=== PATIENT | male | born 1945 | race Caucasian/White ===

== ENCOUNTER 2018-01-07 14:06 | Outpatient (CLI) | payer MEDICARE, OTHER ==
[~2018-01-07] VITALS: Ht 167.6 cm; Wt 89.4 kg
[2018-01-07] MEDS ORDERED: NAPR500T8 PO (14:10)
[2018-01-07] MEDS ORDERED: CLON0.5T13 PO (14:10)
[2018-01-07] MEDS ORDERED: OMEP20TA7 PO (14:10)
[2018-01-07] MEDS ORDERED: OMG1KC PO (14:10)
[2018-01-07] MEDS ORDERED: MULT1TAB69 PO (14:10)
[2018-01-07] MEDS ORDERED: AMIT50TA3 PO (14:10)
[2018-01-07] MEDS ORDERED: RT-ALBUINH IH (14:10)
[2018-01-07] MEDS ORDERED: HYDR25TA4 PO (14:10)
== END 2018-01-07 14:11 | disposition home or self-care (01) ==
LOC: PREOP 14:06
PROVIDERS: ATTEND Surgery
DX: Z01.818 Encounter for other preprocedural examination (principal)

== ENCOUNTER 2018-01-12 06:37 | Day surgery (SDC) | payer OTHER, MEDICARE ==
[~2018-01-12] VITALS: Ht 167.6 cm; Wt 89.4 kg
[~2018-01-12 06:37] MED LIST: AMIT50TA3 PO; CLON0.5T13 PO; HYDR25TA4 PO; MULT1TAB69 PO; NAPR500T8 PO; OMEP20TA7 PO; OMG1KC PO; RT-ALBUINH IH
--- OUTSIDE RECORDS SUMMARY | 2018-01-12 06:41 | XMS REPORT | Continuity of Care Document ---
Author Author [facility] Address Unknown Phone Unavailable Allergies Active Description Code Type Severity Reaction Onset Reported/Identified Relationship to Patient Clinical Status Yes No Known Drug Allergies [id number] Drug Allergy Unknown N/A 01/07/2018 Medications There is no data. Problems Date Dx Coded Attending Type Code Diagnosis Diagnosed By 01/07/2018 AMPARO DOW DO Ot Z01.818 ENCOUNTER FOR OTHER PREPROCEDURAL EXAMIN 01/07/2018 AMPARO DOW DO Ot Z01.818 ENCOUNTER FOR OTHER PREPROCEDURAL EXAMIN 01/07/2018 AMPARO DOW DO Ot Z01.818 ENCOUNTER FOR OTHER PREPROCEDURAL EXAMIN Procedures There is no data. Results There is no data. Encounters ACCT No. Visit Date/Time Discharge Status Pt. Type Provider Facility Loc./Unit Complaint [id number] 05/25/2015 21:50:41 05/25/2015 23:59:59 CLS Outpatient [facility] [id number] 01/05/2018 05:37:00 01/05/2018 23:59:59 CLS Outpatient AMPARO DOW DO [facility] PREOP COLONOSCOPY [id number] 01/12/2018 08:00:00 PEN Preadmit AMPARO DOW DO [facility] ENDO SCREENING
[2018-01-12] MEDS ORDERED: LACTATED RINGERS 1,000 ML IV STA (07:02)
[2018-01-12 07:28] VITALS: BP 172/92
[2018-01-12] MEDS ORDERED: PROPOFOL INJECTION 50 ML IV ONE (07:39)
[2018-01-12 09:00] VITALS: BP 112/57
--- NOTE | 2018-01-12 09:01 | Progress Note-Post Operative ---
Post-Operative Progess Note Surgeon (s)/Mechanist (s) Surgeon AMPARO DOW DO Mechanist: na Pre-Operative Diagnosis screening colon Post-Operative Diagnosis sigmoid polyp Procedure & Operative Findings Date of Procedure 01/12/18 Procedure Performed/Findings colonoscopy with hot bx polypectomy Anesthesia Type per [facility] Estimated Blood Loss Estimated blood loss (mL): none Specimens/Packing Specimens Removed sigmoid polyp AMPARO DOW DO Jan 12, 2018 09:01
--- NOTE | 2018-01-12 09:03 | Discharge Inst-Simple/Standard ---
Discharge Inst-Standard Patient Instructions/Follow Up Plan of Care/Instructions/FU: 2 weeks briana Activity as Tolerated: Yes Discharge Diet: Regular Diet AMPARO DOW DO Jan 12, 2018 09:03
[2018-01-12 09:28] VITALS: BP 137/69
[2018-01-12 09:29] VITALS: BP 137/69
--- NOTE | 2018-01-12 11:17 | Anesthesia-General Post-Op ---
MAC Patient Condition Mental Status/LOC: Same as Preop Cardiovascular: Satisfactory Nausea/Vomiting: Absent Respiratory: Satisfactory Pain: Controlled Complications: Absent Post Op Complications Complications None Follow Up Care/Instructions Patient Instructions None needed. Anesthesiology Discharge Order Discharge Order Patient was seen after the procedure and he was doing well, no complaints, stable vital signs, no apparent adverse anesthesia problems. EPHRAIM TATE DO Jan 12, 2018 11:17
--- NOTE | 2018-01-12 13:34 | OPERATIVE REPORT ---
DATE OF SERVICE: 01/12/2018 PREOPERATIVE DIAGNOSIS: Screening colonoscopy. POSTOPERATIVE DIAGNOSIS: Sigmoid colon polyp. PROCEDURE: Colonoscopy with hot biopsy polypectomy x1. SURGEON: Amparo Lang DO ANESTHESIA: Per MDA. ESTIMATED BLOOD LOSS: None. COMPLICATIONS: None. INDICATIONS: The patient is a 72-year-old male due for screening colonoscopy. He understands risks and benefits of procedure, wished to proceed with procedure. Consent was signed on the chart. DESCRIPTION OF PROCEDURE: The patient was taken to the endoscopy suite, placed in left lateral recumbent position. Timeout was performed. A digital rectal exam was performed. There were no palpable polyps, mass or ulcerations. The scope was inserted in the rectum, advanced all the way to the cecum with minimal difficulty. Prep was adequate. Scope was then slowly retracted back. There were no polyps, masses or ulcerations within the cecum, ascending, transverse and descending colon. In the sigmoid colon, a very small polyp was present, which hot biopsy polypectomy was performed. Scope was continued to be slowly retracted back in to the rectum, where it was also retroflexed noting no other pathology. Scope was returned to its normal position, slowly withdrawn until completely removed. The patient tolerated the procedure well without any complications. He was taken to recovery room in stable condition. RECOMMENDATIONS: The patient will need repeat colonoscopy in 5 years due to polyp and also a family history of colon polyp. If he has any problems prior to that, he should be reevaluated at that time. The patient will follow up in the office in 2 weeks to discuss pathology results and see how he is doing at that time. Job ID: [id number] DocumentID: [id number] Dictated Date: 01/12/2018 09:06:28 Machine Stemmer Date: 01/12/2018 13:34:19 Dictated By: AMPARO LANG DO
== END 2018-01-12 09:30 | disposition home or self-care (01) ==
LOC: ENDO 06:37
PROVIDERS: ATTEND Surgery
DX: Z12.11 Encounter for screening for malignant neoplasm of colon (principal); K63.5 Polyp of colon; Z83.71 Family history of colonic polyps; I10 Essential (primary) hypertension; G47.33 Obstructive sleep apnea (adult) (pediatric); G62.9 Polyneuropathy, unspecified; Z87.891 Personal history of nicotine dependence; Z79.899 Other long term (current) drug therapy